=== PATIENT | female | born 1965 | race Caucasian/White ===

== ENCOUNTER → 2017-07-03 | Outpatient (CLI) | payer OTHER ==
[~2017-07-03] MED LIST: BIEST TOPICAL; CALCCHW25 CHEW; ECHI380C3 PO; MULT1TAB61 PO; VITA500T83 PO; [UNRECOGNIZED DRUG - OTHER] TOPICAL
[2017-07-03 13:13] LABS: AUTOMATED NEUTROPHIL # 2.3 TH/MM3 (1.8-7.7); BASOPHIL % 0.6 % (0.0-2.0); EOSINOPHIL # 0.1 TH/MM3 (0-0.4); EOSINOPHIL % 1.5 % (0.0-4.0); HEMATOCRIT 35.5 % (35.0-46.0); HEMOGLOBIN 12.1 GM/DL (11.6-15.3); LYMPH % 46.1 % (9.0-44.0); LYMPHOCYTE # 2.5 TH/MM3 (1.0-4.8); MEAN CELL VOLUME 87.6 FL (80.0-100.0); MEAN CORPUSCULAR HEMOGLOBIN 29.7 PG (27.0-34.0); MEAN PLATELET VOLUME 10.2 FL (7.0-11.0); MONO % 8.8 % (0.0-8.0); MONOCYTE # 0.5 TH/MM3 (0-0.9); PLATELET COUNT 196 TH/MM3 (150-450); RED BLOOD COUNT 4.06 MIL/MM3 (4.00-5.30); RED CELL DISTRIBUTION WIDTH 12.9 % (11.6-17.2); WHITE BLOOD COUNT 5.4 TH/MM3 (4.0-11.0)
[2017-07-03 13:26] LABS: BILIRUBIN, URINE NEG (NEG); BLOOD, URINE NEG (NEG); GLUCOSE,URINE NEG (NEG); KETONE, URINE NEG (NEG); MUCUS URINE FEW /lpf (OCC); NITRITE,URINE NEG (NEG); PH, URINE 6.5 (5.0-8.5); URINE COLOR LIGHT-YELLOW (YELLW/STRAW); URINE LEUKOCYTE ESTERASE NEG (NEG)
[2017-07-03 13:40] LABS: ALBUMIN 3.8 GM/DL (3.4-5.0); AST (GOT) 11 U/L (15-37); BICARBONATE 30.5 MEQ/L (21.0-32.0); BLOOD UREA NITROGEN 15 MG/DL (7-18); CALCIUM 9.1 MG/DL (8.5-10.1); CHLORIDE 105 MEQ/L (98-107); CREATININE 0.58 MG/DL (0.50-1.00); GLOMERULAR FILTRATION RATE 110 ML/MIN (>89); GLUCOSE,FASTING 81 MG/DL (74-99); SODIUM (NA) 140 MEQ/L (136-145)
[2017-07-03 13:44] LABS: ALKALINE PHOSPHATASE 82 U/L (45-117); ALT (GPT) 14 U/L (10-53); TOTAL BILIRUBIN ADULT 0.3 MG/DL (0.2-1.0); TOTAL PROTEIN 7.9 GM/DL (6.4-8.2)
--- NOTE | 2017-07-04 10:21 | EKG ---
Date Performed: 07/03/2017 Time Performed: 13:22:20 PTAGE: 51 years EKG: Sinus bradycardia Normal ECG except for rate NO PREVIOUS TRACING DOCTOR: Osorio Stephenson Interpretating Date/Time 07/04/2017 10:19:21
== END ==
LOC: CPRE 12:24
PROVIDERS: ATTEND Obstetrics & Gynecology Gynecology
DX: Z01.812 Encounter for preprocedural laboratory examination (principal); Z01.810 Encounter for preprocedural cardiovascular examination; N39.3 Stress incontinence (female) (male)
CPT/HCPCS: 36415; 80053; 81001; 85025; 93005

== ENCOUNTER → 2017-07-09 | Day surgery (SDC) | payer OTHER ==
--- NOTE | 2017-07-08 13:14 | MH ---
cc: CLAIRE HYATT MD DATE OF ADMISSION 07/09/2017 REASON FOR ADMISSION Transobturator sling. HISTORY OF PRESENT ILLNESS The patient is a 51-year-old female who speaks Tuvaluan predominately who has had issues with stress incontinence. She has had an abdominal hysterectomy and pelvic repair in 2010. She notes issues with stress incontinence, wearing 2-3 pads per day. This has been going on for approximately two years, worse when she laughs or sneezes. No associated bowel issues. The patient is a Jewish and adamantly declines any blood products. PAST MEDICAL HISTORY Negative for heart, lung, liver disease, hypertension, diabetes or stroke. PAST SURGICAL HISTORY As above. ALLERGIES None. MEDICATIONS Hormone replacement. SOCIAL HISTORY She does not smoke, use alcohol or drugs. with good social support. Jewish, declines blood products in all situations. FAMILY HISTORY Noncontributory. OB HISTORY Two vaginal deliveries. Hysterectomy for benign condition. MEDIA DEVELOPER HISTORY No STDs or abnormal Pap smears. Hysterectomy for benign condition. REVIEW OF SYSTEMS As above. No chest pain, orthopnea, PND. No nausea, vomiting, fever or chills. No vaginal bleeding or discharge. PHYSICAL EXAMINATION VITAL SIGNS: Height 5.2, weight 163, BMI 30. Blood pressure 120/70. GENERAL: She is alert, oriented, in no acute distress. No sign of cognitive dysfunction or depression. HEENT: Within normal limits. NECK: Supple. No JVD. CHEST: Clear. HEART: Regular rate and rhythm. ABDOMEN: Soft, nontender. No hepatosplenomegaly. There is no CVA tenderness. PELVIC: Will be detailed under anesthesia. In the office we note a POP-Q score of Aa is -2; Ap is -1; point-C is -8; genital hiatus is 8; perineal body is 2. Hypermobility of the urethra is noted at 30 degrees with no significant postvoid residual. EXTREMITIES: Normal. SKIN: Without rashes. NEUROLOGIC: Nonfocal. No DVT signs. ASSESSMENT AND PLAN Patient with stress incontinence with leaking demonstrated 50% capacity, no detrusor instability, no significant postvoid residual. The patient has been apprised of the risks, benefits and alternatives including damage to surrounding organs, bleeding, infection, issues with retention and prolonged catheterization are discussed. She at this point wants to proceed with a transobturator sling. The patient has some degree of pelvic organ prolapse which will be assessed with exam under anesthesia and she may well undergo pelvic repair in the same setting. She is aware of the risks, benefits and alternatives of any additional pelvic repair including damage to surrounding organs, bleeding, infection, dyspareunia and failure of repair. She is aware the decision will be made for any further procedure after the exam under anesthesia. The patient's wishes regarding blood products are that she is not to receive any blood products during the procedure and that would include any products used for hemostasis that would involve the use of thrombin. So in this case will not be using any Surgiflo or FloSeal, but we can use Bunny or Surgicel or other similar activated collagen products. Will use DVT prophylaxis with sequential compression device and antibiotic prophylaxis with 2 grams of Ancef. MD ROMAIN Barajas/VONNIE /12:43 PM /12:52 PM
[~2017-07-09] VITALS: Ht 162.6 cm; Wt 73.1 kg
[~2017-07-09] MED LIST changes: +*MEPERIDINE 25 MG INJ VIAL PERIprocedural Use ONLY ONE; +ACETAMINOPHEN 1000 MG/100 ML 100 ML IV ONE; +CHLORHEXIDINE GLUCONATE 2 % 1 PACK (2 CLOTHS) TOPICAL PRN; +DO NOT ADM ANY ANTICOAGULANT DRUGS PRN; +ESTROGENS CONJUGATED VAG CREA 15 APPL/30 GM TUBE ONE; +KETOROLAC TROMETHAMINE 30 MG/ML (IVP) VIAL IV PUSH PRN; +LACTATED RINGER'S 1000 ML IV PRN; +LIDOCAINE 1%/EPINEPHrine 1:100,000 SOLN 50 ML VIAL ONE; +METHYLENE BLUE 10 MG/ML VIAL IV ONE; +METOPROLOL TARTRATE 25 MG TAB PO PRN; +MIDAZOLAM HCL 2 MG/2 ML VIAL ONE; +ONDANSETRON HCL 4 MG/2 ML VIAL IV PUSH PRN; +POVIDONE IODINE 5% (ANTISEPSIS KIT) 4 APPLICATIONS EACH NARE PRN; +SODIUM CHLORID 0.9% 500 ML IV PRN; +ceFAZolin 2 GM PREMIX 50 ML IV SCH; +traMADol HCL 50 MG TAB PO PRN
[2017-07-09 13:11] VITALS: BP 135/71; PULSE 55; RESP 20; TEMP 98; O2SAT 100
--- NOTE | 2017-07-10 07:31 | MP ---
cc: CLAIRE HYATT DATE OF SURGERY 07/09/2017 PREOPERATIVE DIAGNOSES Stress urinary incontinence, code N39.3. POSTOPERATIVE DIAGNOSES Stress urinary incontinence, code N39.3 with midline cystocele code N81.11. PROCEDURE 1. Transobturator sling [place] [address] 2. Anterior repair code 01108. 3. Diagnostic cystoscopy code [address]72. SURGEON Dr. Hyatt ANESTHESIA Laryngeal mask HAND TRIMMER [facility] staff x2 FLUIDS 1000 cc crystalloid BLOOD LOSS 20 cc URINE OUTPUT 150 cc FINDINGS External genitalia normal. Pop-Q score Aa is 0, Ap is -1, point C is -8, total vaginal length is 8, genital hiatus 6, perineal body is 4. Rectal exam normal. Following repair Aa is -3. The cystoscopy shows normal trigone and good coaptation of urethra. Ureteral orifices patent x2. Dome and base of bladder normal. SPECIMENS Mucosa trimmed, but not sent. COMPLICATIONS None DISPOSITION Recover room stable. COUNTS Needle and sponge counts correct. DRAINS Kuhn catheter PROPHYLAXIS Antibiotic prophylaxis 2 grams Ancef IV. DVT prophylaxis, sequential compression device. TIME OUT PATIENT AND IDENTIFICATION Per protocol. SUMMARY OF INDICATIONS FOR THE PROCEDURE Patient with issues regarding stress urinary continence. She had urodynamic testing that confirmed diagnosis and showed no sign of detrusor instability or abnormality of compliance, capacity or pressure. The patient's issues germane to the procedure is that she is Religion who adamantly refuses any blood products including hemostatic agents that involve thrombin. PROCEDURE NOTE The patient was taken to the operating room theater, identified, prepped and draped in a fashion appropriate for the planned procedure. She was in the dorsolithotomy position with careful attention paid to place of legs in stirrups to avoid undue stress to sensitive neurovascular structures. The above findings noted. Neurovascular integrity documented. Kuhn catheter was placed. Methylene blue was instilled into bladder. The obturator foramen were identified on each side. These areas were infiltrated with epinephrine/lidocaine solution. The length of the urethra was identified by palpating the Kuhn bulb and this area was infiltrated epinephrine/lidocaine solution as well. A sharp dissection was used to mobilize the urethra from the vaginal mucosa. We took the dissection up to the pubic rami. There was no significant bleeding. No spill of methylene blue. A C-hook was placed from a lateral to medial position on each side. The polypropylene sling was placed in the mid urethra using a scalpel handle as a spacer. The anterior repair was performed in standard fashion with delayed absorbable suture. The vaginal mucosa was closed. We did use hemostatic powder activated starch that did not involve any blood products for hemostasis to obviate the need for packing. Cystoscopy was performed with a 17-Syriac bridge, a 70 degree scope. The above findings noted. No damage to bladder or urethra. Dome and base of bladder normal. Procedure was concluded. The patient reversed from anesthesia, taken to recovery in stable condition. MD ROMAIN Barajas/JOANA /12:06 PM /6:59 AM
== END | disposition home or self-care (01) ==
LOC: HSDC 07:35 → EDUNIT# 10:00
PROVIDERS: ATTEND Obstetrics & Gynecology Gynecology
DX: N39.3 Stress incontinence (female) (male) (principal); N81.11 Cystocele, midline
CPT/HCPCS: 00860; 57240; 57288; C1771; J0131; J0690; J2175; J2250; J3010; J7120